=== PATIENT | female | born 1945 | race Caucasian/White ===

== ENCOUNTER 2021-05-23 18:14 | Inpatient (IN) ==
[2021-05-23 19:04] LABS: Basophils # 0.1 10*3/uL (0.0-0.2); Basophils % 0.8 % (0.0-0.8); Eosinophils # 0.1 10*3/uL (0.0-0.87); Eosinophils % 1.3 % (0.00-10.9); Hematocrit 41.1 VOL% (35.7-47.0); Hemoglobin 13.9 GM/DL (12.0-16.0); Immature Granulocytes % 0.3 %; Immature Granulocytes Absolute 0.02 #; Lymphocytes # 2.9 10*3/uL (1.4-4.0); Lymphocytes % 37.1 % (21.3-54.2); Mean Corpuscular HGB Conc 33.8 GM/DL (32-36); Mean Corpuscular Volume 92.6 FL (87-102); Mean Platelet Volume 9.2 FL (9.6-12.0); Monocytes % 9.6 % (1.7-12.7); Neutrophils % 50.9 % (38.7-73.9); Platelet Count 266 T/CUMM (130-400); Red Blood Count 4.44 MC/CUMM (3.8-5.5); Red Cell Distribution Width 12.8 % (9.3-17.3); White Blood Count 7.9 T/CUMM (4-12)
[2021-05-23 19:21] LABS: Albumin 3.9 G/DL (3.4-5.0); Bilirubin,Total 0.4 MG/DL (0.20-1.00); Calcium 9.7 MG/DL (8.5-10.1); Osmolality,Calculated 273.1 MOS/KG (273-304); Potassium 4.6 MMOL/L (3.5-5.1)
[2021-05-23] MEDS ORDERED: ASPIRIN EC 325 MG TABLET PO STA (23:11)
[2021-05-23] MEDS ORDERED: ENOXAPARIN 30 MG/0.3 ML SYRINGE SUBCUT STA (23:11)
[2021-05-24] MEDS ORDERED: GLUCAGON 1 MG VIAL IM PRN (00:09)
[2021-05-24] MEDS ORDERED: MORPHINE 2 MG/1 ML SYRINGE IV PRN (00:09)
[2021-05-24] MEDS ORDERED: DEXTROSE 50% 25 GM/50 ML VIAL IV PRN (00:09)
[2021-05-24] MEDS ORDERED: ONDANSETRON 4 MG/2 ML VIAL IV PRN (00:09)
[2021-05-24] MEDS: SODIUM CHLORIDE 0.9% 1,000 ML IV SCH (01:48)
[2021-05-24] MEDS: ENOXAPARIN 80 MG/0.8 ML SYRINGE SUBCUT SCH ×2 (01:49→16:03)
[2021-05-24 05:30] LABS: Basophils # 0.1 10*3/uL (0.0-0.2); Basophils % 0.9 % (0.0-0.8); Eosinophils # 0.1 10*3/uL (0.0-0.87); Eosinophils % 0.7 % (0.00-10.9); Hematocrit 41.6 VOL% (35.7-47.0); Hemoglobin 13.8 GM/DL (12.0-16.0); Immature Granulocytes % 0.4 %; Immature Granulocytes Absolute 0.03 #; Lymphocytes # 1.5 10*3/uL (1.4-4.0); Lymphocytes % 22.2 % (21.3-54.2); Mean Corpuscular HGB Conc 33.2 GM/DL (32-36); Mean Corpuscular Volume 91.2 FL (87-102); Mean Platelet Volume 9.2 FL (9.6-12.0); Monocytes % 9.7 % (1.7-12.7); Neutrophils % 66.1 % (38.7-73.9); Platelet Count 266 T/CUMM (130-400); Red Blood Count 4.56 MC/CUMM (3.8-5.5); Red Cell Distribution Width 12.9 % (9.3-17.3); White Blood Count 6.7 T/CUMM (4-12)
[2021-05-24 05:58] LABS: Risk Ratio 5.26; VLDL Cholesterol 34.2 MG/DL
[2021-05-24 06:04] LABS: Calcium 9.1 MG/DL (8.5-10.1); Osmolality,Calculated 278.4 MOS/KG (273-304); Potassium 4.1 MMOL/L (3.5-5.1)
[2021-05-24] MEDS ORDERED: MAGNESIUM SULF RIDER 2 GM/50 ML PREMIX IV PRN ×2 (08:43→10:58)
[2021-05-24] MEDS ORDERED: diphenhydrAMINE CAP 50 MG CAPSULE PO ONE (08:43)
[2021-05-24] MEDS ORDERED: POTASSIUM CHLORIDE RIDER 10 MEQ/100 ML PREMIX IV PRN ×2 (08:43→10:58)
[2021-05-24] MEDS ORDERED: DIAZEPAM 5 MG TABLET PO ONE (08:43)
[2021-05-24] MEDS ORDERED: HYDROmorphone 2 MG/1 ML VIAL ONE (08:50)
[2021-05-24] MEDS ORDERED: MIDAZOLAM 2 MG/2 ML VIAL ONE (08:50)
[2021-05-24] MEDS ORDERED: LIDOCAINE 1% 20 ML VIAL ONE (08:50)
[2021-05-24] MEDS ORDERED: ASPIRIN EC 81 MG TABLET PO SCH (09:00)
[2021-05-24] MEDS: ASPIRIN EC 81 MG TABLET PO SCH (09:50)
[2021-05-24] MEDS: PANTOPRAZOLE 40 MG TABLET PO SCH (09:50)
[2021-05-24] MEDS: DIAZEPAM 2 MG TABLET PO PRN ×2 (09:50→16:04)
[2021-05-24] MEDS: METOPROLOL TARTRATE 25 MG TABLET PO SCH ×2 (09:50→20:20)
[2021-05-24] MEDS ORDERED: MECLIZINE 12.5 MG TABLET PO PRN (10:29)
[2021-05-24] MEDS: ATORVASTATIN 40 MG TABLET PO SCH (20:20)
[2021-05-25] MEDS: SODIUM CHLORIDE 0.9% 1,000 ML IV SCH ×2 (00:07→18:30)
[2021-05-25] MEDS: ENOXAPARIN 80 MG/0.8 ML SYRINGE SUBCUT SCH ×2 (04:20→16:43)
[2021-05-25 06:02] LABS: Basophils # 0.1 10*3/uL (0.0-0.2); Basophils % 1.1 % (0.0-0.8); Eosinophils # 0.1 10*3/uL (0.0-0.87); Eosinophils % 1.8 % (0.00-10.9); Hematocrit 39.8 VOL% (35.7-47.0); Hemoglobin 13.1 GM/DL (12.0-16.0); Immature Granulocytes % 0.2 %; Immature Granulocytes Absolute 0.01 #; Lymphocytes # 1.6 10*3/uL (1.4-4.0); Lymphocytes % 28.3 % (21.3-54.2); Mean Corpuscular HGB Conc 32.9 GM/DL (32-36); Mean Corpuscular Volume 91.9 FL (87-102); Mean Platelet Volume 9.4 FL (9.6-12.0); Monocytes % 11.6 % (1.7-12.7); Platelet Count 247 T/CUMM (130-400); Red Blood Count 4.33 MC/CUMM (3.8-5.5); Red Cell Distribution Width 12.8 % (9.3-17.3); White Blood Count 5.5 T/CUMM (4-12)
[2021-05-25 06:22] LABS: Calcium 8.7 MG/DL (8.5-10.1); Osmolality,Calculated 277.4 MOS/KG (273-304); Potassium 4.7 MMOL/L (3.5-5.1)
[2021-05-25] MEDS: THYROID 60 MG TABLET PO SCH (08:31)
[2021-05-25] MEDS: PANTOPRAZOLE 40 MG TABLET PO SCH (08:31)
[2021-05-25] MEDS: METOPROLOL TARTRATE 25 MG TABLET PO SCH ×2 (08:32→20:18)
[2021-05-25] MEDS: ASPIRIN EC 81 MG TABLET PO SCH (08:33)
[2021-05-25] MEDS: LOSARTAN 25 MG TABLET PO SCH (15:28)
[2021-05-25] MEDS: ATORVASTATIN 40 MG TABLET PO SCH (20:18)
[2021-05-25] MEDS: DIAZEPAM 2 MG TABLET PO PRN (21:26)
[2021-05-26] MEDS: ENOXAPARIN 80 MG/0.8 ML SYRINGE SUBCUT SCH ×2 (04:28→15:51)
[2021-05-26 06:08] LABS: Basophils # 0.1 10*3/uL (0.0-0.2); Basophils % 1.6 % (0.0-0.8); Eosinophils # 0.1 10*3/uL (0.0-0.87); Eosinophils % 2.8 % (0.00-10.9); Hematocrit 38.2 VOL% (35.7-47.0); Hemoglobin 12.5 GM/DL (12.0-16.0); Immature Granulocytes % 0.4 %; Immature Granulocytes Absolute 0.02 #; Lymphocytes # 1.6 10*3/uL (1.4-4.0); Lymphocytes % 30.6 % (21.3-54.2); Mean Corpuscular HGB Conc 32.7 GM/DL (32-36); Mean Corpuscular Volume 94.1 FL (87-102); Mean Platelet Volume 9.7 FL (9.6-12.0); Monocytes % 10.4 % (1.7-12.7); Neutrophils % 54.2 % (38.7-73.9); Platelet Count 229 T/CUMM (130-400); Red Blood Count 4.06 MC/CUMM (3.8-5.5); Red Cell Distribution Width 12.7 % (9.3-17.3); White Blood Count 5.1 T/CUMM (4-12)
[2021-05-26] MEDS ORDERED: diphenhydrAMINE CAP 50 MG CAPSULE PO ONE (06:30)
[2021-05-26] MEDS ORDERED: DIAZEPAM 5 MG TABLET PO ONE ×2 (06:30→19:00)
[2021-05-26] MEDS ORDERED: LIDOCAINE 1%/EPI INJ 20 ML VIAL ONE (06:48)
[2021-05-26] MEDS ORDERED: HEPARIN 5,000 UNIT/1 ML VIAL ONE (06:48)
[2021-05-26] MEDS ORDERED: HEPARIN/NACL 0.9% 2 UNITS/ML 2,000 UNIT/1,000 ML BAG IV ONE (06:49)
[2021-05-26 06:54] LABS: Calcium 8.7 MG/DL (8.5-10.1); Osmolality,Calculated 273.7 MOS/KG (273-304); Potassium 4.6 MMOL/L (3.5-5.1)
[2021-05-26] MEDS ORDERED: MIDAZOLAM 2 MG/2 ML VIAL ONE (06:54)
[2021-05-26] MEDS ORDERED: fentaNYL 100 MCG/2 ML VIAL ONE (06:54)
[2021-05-26] MEDS ORDERED: hydrALAZINE 20 MG/1 ML VIAL ONE (07:23)
[2021-05-26] MEDS ORDERED: ONDANSETRON 4 MG/2 ML VIAL ONE (07:26)
[2021-05-26] MEDS ORDERED: DILTIAZEM 50 MG/10 ML VIAL IV ONE (07:42)
[2021-05-26] MEDS: DILTIAZEM INJ 100 MG in SODIUM CHLORIDE 0.9% 100 ML IV SCH (07:50)
[2021-05-26] MEDS ORDERED: DILTIAZEM INJ 100 MG in SODIUM CHLORIDE 0.9% 100 ML IV SCH (08:00)
[2021-05-26] MEDS ORDERED: ACETAMINOPHEN 325 MG TABLET PO PRN (09:50)
[2021-05-26] MEDS: THYROID 60 MG TABLET PO SCH (09:59)
[2021-05-26] MEDS: ASPIRIN EC 81 MG TABLET PO SCH (09:59)
[2021-05-26] MEDS: LOSARTAN 25 MG TABLET PO SCH (10:00)
[2021-05-26] MEDS: PANTOPRAZOLE 40 MG TABLET PO SCH (10:01)
[2021-05-26] MEDS: METOPROLOL TARTRATE 25 MG TABLET PO SCH ×2 (10:01→22:26)
[2021-05-26] MEDS ORDERED: MAGNESIUM SULF RIDER 2 GM/50 ML PREMIX IV ONE (11:09)
[2021-05-26] MEDS ORDERED: CEFUROXIME INJ 1,500 MG in SODIUM CHLORIDE 0.9% 100 ML IV ONE (13:01)
[2021-05-26] MEDS ORDERED: GLUCAGON 1 MG VIAL IM PRN (13:01)
[2021-05-26] MEDS ORDERED: DEXTROSE 50% 25 GM/50 ML VIAL IV PRN (13:01)
[2021-05-26] MEDS ORDERED: SODIUM CHLORIDE 0.9% 1,000 ML IV SCH (13:30)
[2021-05-26 14:25] LABS: ABG Base Excess 1.9 MMOL/L (-2.5-2.5); ABG HCO3 25.7 MMOL/L (20-26); ABG Oxygen Saturation 96.2 % (95-100); ABG PCO2 37.2 MM HG (35-48); ABG PH 7.457 (7.35-7.45); ABG PO2 82.1 MM HG (80-95); ABG TCO2 26.8 MMOL/L (23-27)
[2021-05-26] MEDS: CHLORHEXIDINE 4% SOLN 118 ML BOTTLE TOP SCH ×3 (15:45→22:27)
[2021-05-26] MEDS: ATORVASTATIN 40 MG TABLET PO SCH (22:26)
[2021-05-26] MEDS: ASCORBIC ACID 500 MG TABLET PO SCH (22:26)
[2021-05-26] MEDS: CHLORHEXIDINE 0.12% ORAL RINSE 60 ML BOTTLE SWISH/SPIT SCH (22:27)
[2021-05-27] MEDS ORDERED: PAPAVERINE 60 MG/2 ML VIAL ONE (04:45)
[2021-05-27] MEDS ORDERED: VANCOMYCIN 500 MG VIAL ONE (04:46)
[2021-05-27] MEDS ORDERED: VANCOMYCIN 1,000 MG VIAL ONE (04:46)
[2021-05-27] MEDS ORDERED: VECURONIUM 10 MG VIAL IV ONE ×3 (05:46→09:13)
[2021-05-27] MEDS ORDERED: MIDAZOLAM 10 MG/2 ML VIAL ONE ×4 (05:46→09:13)
[2021-05-27] MEDS ORDERED: SUFentanil 250 MCG/5 ML AMP ONE ×2 (05:46→07:56)
[2021-05-27] MEDS ORDERED: CALCIUM CHLORIDE 1,000 MG/10 ML VIAL IV ONE (05:52)
[2021-05-27] MEDS ORDERED: MINERAL OIL/PETROLATUM OPH OINT 3.5 GM TUBE ONE (05:52)
[2021-05-27] MEDS ORDERED: AMINOCAPROIC ACID 5,000 MG/20 ML VIAL ONE (05:52)
[2021-05-27] MEDS ORDERED: LIDOCAINE 2% 5 ML VIAL ONE ×2 (05:52→10:16)
[2021-05-27] MEDS ORDERED: SODIUM CHLORIDE 0.9% 250 ML IV ONE (05:53)
[2021-05-27] MEDS ORDERED: FAMOTIDINE 20 MG/2 ML VIAL IV ONE (05:59)
[2021-05-27] MEDS ORDERED: DIAZEPAM 5 MG TABLET PO ONE (06:00)
[2021-05-27] MEDS ORDERED: CEFUROXIME INJ 1,500 MG in SODIUM CHLORIDE 0.9% 100 ML IV ONE (06:30)
[2021-05-27 06:38] LABS: Basophils # 0.1 10*3/uL (0.0-0.2); Basophils % 0.9 % (0.0-0.8); Eosinophils # 0.1 10*3/uL (0.0-0.87); Eosinophils % 1.4 % (0.00-10.9); Hematocrit 37.3 VOL% (35.7-47.0); Hemoglobin 12.4 GM/DL (12.0-16.0); Immature Granulocytes % 0.3 %; Immature Granulocytes Absolute 0.02 #; Lymphocytes # 1.5 10*3/uL (1.4-4.0); Lymphocytes % 22.8 % (21.3-54.2); Mean Corpuscular HGB Conc 33.2 GM/DL (32-36); Mean Corpuscular Volume 92.6 FL (87-102); Mean Platelet Volume 9.5 FL (9.6-12.0); Monocytes % 10.8 % (1.7-12.7); Neutrophils % 63.8 % (38.7-73.9); Platelet Count 245 T/CUMM (130-400); Red Blood Count 4.03 MC/CUMM (3.8-5.5); Red Cell Distribution Width 12.9 % (9.3-17.3); White Blood Count 6.5 T/CUMM (4-12)
[2021-05-27 07:04] LABS: Calcium 8.8 MG/DL (8.5-10.1); Osmolality,Calculated 271.8 MOS/KG (273-304); Potassium 3.9 MMOL/L (3.5-5.1)
[2021-05-27 07:40] LABS: ABG Oxygen Saturation 98.8 % (95-100); ABG PCO2 36.8 MM HG (35-48); ABG PH 7.432 (7.35-7.45); ABG PO2 433.1 MM HG (80-95); ABG TCO2 25.1 MMOL/L (23-27); Glucose Heart Surgery 104 MG/DL (74-106); Hemoglobin Heart Surgery 11.2 G/DL (12.0-16.0); Ionized Calcium Arterial 1.09 MMOL/L (1.21-1.46); PCO2 Patient Temp Arterial 36.8 MMHG; PH Patient Temp Arterial 7.432; PO2 Patient Temp Arterial 433.1 MM HG; Patient Temperature 37 CELCIUS; Potassium Heart/CVR 3.5 MMOL/L (3.5-5.1); Sodium Heart/CVR 135 MMOL/L (135-145)
[2021-05-27 07:53] LABS: Bilirubin,Urine Negative (Negative); Blood, Urine Negative (Negative); Glucose,Urine (UA) Negative (Negative); Hyaline Casts,Urine 1 /LPF (0-3); Ketones,Urine Negative (Negative); Mucus,Urine Occasional /LPF (Occasional); Nitrite,Urine Negative (Negative); Protein,Urine Negative; RBC,Urine 2 /HPF (0-4); Squamous Epithelial Cell,Urine Occasional /HPF (0-10); Urine Appearance CLEAR (Clear); Urine Color Yellow (Yellow); Urine Urobilinogen < 2.0 EU/DL (0.2-1.0)
[2021-05-27] MEDS ORDERED: PHENYLEPHRINE DRIP 40 MG/250 ML PREMIX IV ONE (09:04)
[2021-05-27 09:06] LABS: Hematocrit Heart Surgery 18.9 PERCENT (37-47); PCO2 Patient Temp Venous 30.5 MM HG; PH Patient Temp Venous 7.514; PO2 Patient Temp Venous 37.9 MM HG; Potassium Heart/CVR 4.5 MMOL/L (3.5-5.1); VBG Base Excess 1.9 MEQ/L (0-4); VBG Oxygen Saturation 85.2 %; VBG PCO2 35.2 MMHG (41-51); VBG PH 7.469; VBG PO2 46.5 MMHG (17-40); VBG Total CO2 24.5 MMOL/L
[2021-05-27] MEDS ORDERED: SODIUM CHLORIDE 0.9% 1,000 ML IV ONE (09:11)
[2021-05-27] MEDS ORDERED: LACTATED RINGERS 1,000 ML IV ONE (09:11)
[2021-05-27] MEDS ORDERED: SODIUM CHLORIDE 0.9% 100 ML IV ONE (09:11)
[2021-05-27] MEDS ORDERED: SEVOFLURANE 1 UNIT/15 MINUTE INH ONE ×5 (09:12→11:02)
[2021-05-27] MEDS ORDERED: diphenhydrAMINE 50 MG/1 ML VIAL ONE (09:12)
[2021-05-27 09:41] LABS: Hematocrit Heart Surgery 20.5 PERCENT (37-47); Hemoglobin Heart Surgery 6.6 G/DL (12.0-16.0); PCO2 Patient Temp Venous 32.1 MM HG; PH Patient Temp Venous 7.505; Potassium Heart/CVR 4.1 MMOL/L (3.5-5.1); VBG Base Excess 2.5 MEQ/L (0-4); VBG HCO3 26.5 MEQ/L (24-28); VBG Oxygen Saturation 84.7 %; VBG PCO2 37.1 MMHG (41-51); VBG PH 7.46; VBG PO2 46.7 MMHG (17-40); VBG Total CO2 25.1 MMOL/L
[2021-05-27] MEDS ORDERED: ALBUMIN 25% 25 GM/100 ML VIAL IV ONE (10:16)
[2021-05-27] MEDS ORDERED: MAGNESIUM SULFATE 5 GM/10 ML VIAL IV ONE (10:16)
[2021-05-27] MEDS ORDERED: HEPARIN 10,000 UNIT/10 ML VIAL ONE (10:17)
[2021-05-27] MEDS ORDERED: PROTAMINE SULFATE 250 MG/25 ML VIAL IV ONE (10:17)
[2021-05-27] MEDS ORDERED: DEXTROSE 5% KCL 20 MEQ 20 MEQ/1,000 ML BAG IV ONE (10:17)
[2021-05-27] MEDS ORDERED: MANNITOL 100 GM/500 ML BAG IV ONE (10:17)
[2021-05-27] MEDS ORDERED: methylPREDNISolone SOD SUC 1,000 MG/8 ML VIAL ONE (10:17)
[2021-05-27] MEDS ORDERED: SODIUM BICARBONATE 50 MEQ/50 ML VIAL IV ONE (10:18)
[2021-05-27] MEDS ORDERED: FUROSEMIDE 20 MG/2 ML VIAL ONE (10:18)
[2021-05-27 10:30] LABS: ABG Base Excess 1.1 MMOL/L (-2.5-2.5); ABG HCO3 25.4 MMOL/L (20-26); ABG PCO2 35.5 MM HG (35-48); ABG PH 7.453 (7.35-7.45); Glucose Heart Surgery 255 MG/DL (74-106); Hematocrit Heart Surgery 25.6 PERCENT (37-47); Hemoglobin Heart Surgery 8.2 G/DL (12.0-16.0); Ionized Calcium Arterial 1.26 MMOL/L (1.21-1.46); PCO2 Patient Temp Arterial 35.5 MMHG; PH Patient Temp Arterial 7.453; Patient Temperature 37 CELCIUS; Potassium Heart/CVR 3.5 MMOL/L (3.5-5.1); Sodium Heart/CVR 136 MMOL/L (135-145)
[2021-05-27] MEDS ORDERED: HEPARIN/NACL 0.9% 2 UNITS/ML 1,000 UNIT/500 ML BAG IV ONE (11:03)
[2021-05-27] MEDS ORDERED: CALCIUM CHLORIDE 1,000 MG/10 ML SYRINGE IV PRN (11:24)
[2021-05-27] MEDS ORDERED: INSULIN REGULAR 100 UNIT/ML IV PRN (11:24)
[2021-05-27] MEDS ORDERED: VECURONIUM 10 MG VIAL IV PRN ×2 (11:24)
[2021-05-27] MEDS ORDERED: MAGNESIUM SULF RIDER 2 GM/50 ML PREMIX IV PRN (11:24)
[2021-05-27] MEDS ORDERED: MAGNESIUM SULF RIDER 4 GM/100 ML PREMIX IV PRN (11:24)
[2021-05-27] MEDS ORDERED: INSULIN REGULAR 100 UNIT/ML IV ONE (11:24)
[2021-05-27] MEDS ORDERED: ALBUMIN 5% 12.5 GM/250 ML VIAL IV PRN (11:24)
[2021-05-27] MEDS ORDERED: DEXTROSE 50% 25 GM/50 ML VIAL IV PRN ×2 (11:24)
[2021-05-27] MEDS ORDERED: LACTATED RINGERS 250 ML IV PRN (11:24)
[2021-05-27] MEDS ORDERED: ONDANSETRON 4 MG/2 ML VIAL IV PRN (11:24)
[2021-05-27] MEDS ORDERED: ACETAMINOPHEN 650 MG SUPP RECTAL PRN (11:24)
[2021-05-27] MEDS ORDERED: PHENYLEPHRINE DRIP 40 MG/250 ML PREMIX IV PRN (11:24)
[2021-05-27] MEDS ORDERED: MIDAZOLAM 2 MG/2 ML VIAL IV PRN (11:24)
[2021-05-27] MEDS ORDERED: NITROPRUSSIDE 100 MG in DEXTROSE 5% 250 ML IV PRN (11:24)
[2021-05-27] MEDS ORDERED: MIDAZOLAM 10 MG/2 ML VIAL IV PRN (11:24)
[2021-05-27] MEDS ORDERED: CHLORHEXIDINE 4% SOLN 118 ML BOTTLE TOP PRN (11:24)
[2021-05-27] MEDS: SODIUM CHLORIDE 0.45% 1,000 ML IV SCH ×2 (11:43→11:44)
[2021-05-27 11:46] LABS: ABG Base Excess 2.6 MMOL/L (-2.5-2.5); ABG HCO3 26.7 MMOL/L (20-26); ABG Oxygen Saturation 99.4 % (95-100); ABG PCO2 34.3 MM HG (35-48); ABG PH 7.486 (7.35-7.45); ABG TCO2 23.8 MMOL/L (23-27); Glucose Heart Surgery 222 MG/DL (74-106); Hematocrit Heart Surgery 27.2 PERCENT (37-47); Hemoglobin Heart Surgery 8.8 G/DL (12.0-16.0); Potassium Heart/CVR 3.2 MMOL/L (3.5-5.1)
[2021-05-27 12:04] LABS: Basophils % 0.3 % (0.0-0.8); Eosinophils # 0.1 10*3/uL (0.0-0.87); Eosinophils % 0.4 % (0.00-10.9); Immature Granulocytes % 0.4 %; Immature Granulocytes Absolute 0.05 #; Lymphocytes # 1.1 10*3/uL (1.4-4.0); Lymphocytes % 9.5 % (21.3-54.2); Mean Corpuscular HGB Conc 33.8 GM/DL (32-36); Mean Corpuscular Volume 93.2 FL (87-102); Monocytes % 6.2 % (1.7-12.7); Neutrophils % 83.2 % (38.7-73.9); Platelet Count 215 T/CUMM (130-400); Red Cell Distribution Width 12.9 % (9.3-17.3)
[2021-05-27 12:08] LABS: Hemoglobin 8.8 GM/DL (12.0-16.0); Red Blood Count 2.79 MC/CUMM (3.8-5.5); White Blood Count 11.2 T/CUMM (4-12)
[2021-05-27 12:10] LABS: INR 1.2; PT Patient Result 13.3 SECS (10.5-12.0); Partial Thromboplastin Time 29.7 SECS (23.9-33.8)
[2021-05-27] MEDS: POTASSIUM CHLORIDE RIDER 20 MEQ/100 ML PREMIX IV PRN ×5 (12:12→16:53)
[2021-05-27] MEDS: CHLORHEXIDINE 4% SOLN 118 ML BOTTLE TOP SCH (12:13)
[2021-05-27 12:22] LABS: CKMB % 10.3 %
[2021-05-27 12:27] LABS: High Sensitive Troponin I* 7060.9 ng/L (0-54)
[2021-05-27] MEDS: INSULIN REGULAR DRIP 100 ML IV SCH (12:27)
[2021-05-27 12:37] LABS: Albumin 3.2 G/DL (3.4-5.0); Calcium 8.4 MG/DL (8.5-10.1); Osmolality,Calculated 280.5 MOS/KG (273-304); Potassium 3.2 MMOL/L (3.5-5.1); Total Protein 5.9 G/DL (6.4-8.2)
[2021-05-27] MEDS: LACTATED RINGERS 1,000 ML IV PRN ×4 (13:11→23:25)
[2021-05-27] MEDS ORDERED: HYDROmorphone 2 MG/1 ML VIAL IV PRN ×2 (13:29→13:32)
[2021-05-27 13:55] LABS: ABG HCO3 22.7 MMOL/L (20-26); ABG Oxygen Saturation 99.6 % (95-100); ABG PCO2 29.1 MM HG (35-48); ABG PH 7.465 (7.35-7.45); ABG TCO2 19.3 MMOL/L (23-27); Glucose Heart Surgery 110 MG/DL (74-106); Hematocrit Heart Surgery 27.5 PERCENT (37-47); Hemoglobin Heart Surgery 8.9 G/DL (12.0-16.0); Potassium Heart/CVR 2.8 MMOL/L (3.5-5.1)
[2021-05-27] MEDS: HYDROmorphone 2 MG/1 ML VIAL IV PRN ×2 (13:59→22:35)
[2021-05-27] MEDS ORDERED: DEXMEDETOMIDINE 200 MCG in SODIUM CHLORIDE 0.9% 48 ML IV PRN (14:00)
[2021-05-27] MEDS ORDERED: PROTAMINE SULFATE 50 MG/5 ML VIAL IV ONE (14:10)
[2021-05-27] MEDS: KETOROLAC 30 MG/1 ML VIAL IV SCH ×2 (14:19→20:33)
[2021-05-27 14:20] LABS: ABG Base Excess 2.8 MMOL/L (-2.5-2.5); ABG HCO3 26.9 MMOL/L (20-26); ABG Oxygen Saturation 99.6 % (95-100); ABG PCO2 32.9 MM HG (35-48); ABG TCO2 23.1 MMOL/L (23-27); Glucose Heart Surgery 126 MG/DL (74-106); Hematocrit Heart Surgery 31.6 PERCENT (37-47); Hemoglobin Heart Surgery 10.2 G/DL (12.0-16.0); Potassium Heart/CVR 3.1 MMOL/L (3.5-5.1)
[2021-05-27 16:07] LABS: ABG HCO3 26.2 MMOL/L (20-26); ABG PCO2 37.4 MM HG (35-48); ABG PH 7.449 (7.35-7.45); ABG TCO2 23.7 MMOL/L (23-27); Glucose Heart Surgery 95 MG/DL (74-106); Hematocrit Heart Surgery 29.1 PERCENT (37-47); Hemoglobin Heart Surgery 9.4 G/DL (12.0-16.0)
[2021-05-27 18:37] LABS: ABG Base Excess -0.5 MMOL/L (-2.5-2.5); ABG Oxygen Saturation 98.3 % (95-100); ABG PCO2 40.5 MM HG (35-48); ABG PH 7.388 (7.35-7.45); ABG TCO2 22.2 MMOL/L (23-27); Glucose Heart Surgery 159 MG/DL (74-106); Potassium Heart/CVR 4.2 MMOL/L (3.5-5.1)
[2021-05-27] MEDS: CEFUROXIME INJ 1,500 MG in SODIUM CHLORIDE 0.9% 100 ML IV SCH (18:53)
[2021-05-27] MEDS: ASPIRIN EC 81 MG TABLET PO SCH (19:37)
[2021-05-27] MEDS: DILTIAZEM INJ 100 MG in SODIUM CHLORIDE 0.9% 100 ML IV SCH (19:37)
[2021-05-27] MEDS: THYROID 60 MG TABLET PO SCH (19:37)
[2021-05-27] MEDS: LOSARTAN 25 MG TABLET PO SCH (19:37)
[2021-05-27] MEDS: METOPROLOL TARTRATE 25 MG TABLET PO SCH (19:37)
[2021-05-27] MEDS: ASCORBIC ACID 500 MG TABLET PO SCH (19:38)
[2021-05-27] MEDS: CHLORHEXIDINE 0.12% ORAL RINSE 60 ML BOTTLE SWISH/SPIT SCH ×2 (19:38→20:56)
[2021-05-27] MEDS: PANTOPRAZOLE 40 MG TABLET PO SCH (19:38)
[2021-05-27 20:20] LABS: ABG Base Excess 0.3 MMOL/L (-2.5-2.5); ABG HCO3 24.7 MMOL/L (20-26); ABG Oxygen Saturation 98.6 % (95-100); ABG PCO2 39.4 MM HG (35-48); ABG PH 7.408 (7.35-7.45); ABG TCO2 22.6 MMOL/L (23-27); Glucose Heart Surgery 152 MG/DL (74-106); Hematocrit Heart Surgery 30.6 PERCENT (37-47); Hemoglobin Heart Surgery 9.9 G/DL (12.0-16.0)
[2021-05-27] MEDS: POTASSIUM CHLORIDE RIDER 10 MEQ/100 ML PREMIX IV PRN ×2 (20:32→20:56)
[2021-05-27] MEDS ORDERED: DEXMEDETOMIDINE 400 MCG in SODIUM CHLORIDE 0.9% 96 ML IV PRN (20:47)
[2021-05-27 20:52] LABS: CKMB % 14.4 %
[2021-05-27 20:56] LABS: High Sensitive Troponin I* 17948.5 ng/L (0-54)
[2021-05-27] MEDS ORDERED: FUROSEMIDE 40 MG/4 ML VIAL IV ONE (22:04)
[2021-05-28 00:17] LABS: ABG Base Excess 2.9 MMOL/L (-2.5-2.5); ABG HCO3 26.7 MMOL/L (20-26); ABG Oxygen Saturation 96.3 % (95-100); ABG PH 7.465 (7.35-7.45); ABG PO2 89.3 MM HG (80-95); ABG TCO2 27.9 MMOL/L (23-27); Glucose Heart Surgery 85 MG/DL (74-106); Hemoglobin Heart Surgery 10.1 G/DL (12.0-16.0); Potassium Heart/CVR 3.3 MMOL/L (3.5-5.1)
[2021-05-28] MEDS: POTASSIUM CHLORIDE RIDER 20 MEQ/100 ML PREMIX IV PRN ×3 (00:22→07:27)
[2021-05-28 02:23] LABS: ABG HCO3 25.3 MMOL/L (20-26); ABG Oxygen Saturation 96.9 % (95-100); ABG PCO2 42.7 MM HG (35-48); ABG PH 7.394 (7.35-7.45); ABG PO2 89.2 MM HG (80-95); ABG TCO2 23.8 MMOL/L (23-27); Glucose Heart Surgery 112 MG/DL (74-106); Hematocrit Heart Surgery 30.6 PERCENT (37-47); Hemoglobin Heart Surgery 9.9 G/DL (12.0-16.0); Potassium Heart/CVR 4.4 MMOL/L (3.5-5.1)
[2021-05-28] MEDS: KETOROLAC 30 MG/1 ML VIAL IV SCH ×4 (03:32→20:55)
[2021-05-28 04:19] LABS: ABG Base Excess 0.8 MMOL/L (-2.5-2.5); ABG HCO3 25.3 MMOL/L (20-26); ABG Oxygen Saturation 95.5 % (95-100); ABG PCO2 40.2 MM HG (35-48); ABG PH 7.417 (7.35-7.45); ABG PO2 82.2 MM HG (80-95); ABG TCO2 26.5 MMOL/L (23-27); Basophils % 0.1 % (0.0-0.8); Glucose Heart Surgery 117 MG/DL (74-106); Hematocrit 27.7 VOL% (35.7-47.0); Hemoglobin 9.3 GM/DL (12.0-16.0); Hemoglobin Heart Surgery 9.8 G/DL (12.0-16.0); Immature Granulocytes % 0.6 %; Immature Granulocytes Absolute 0.09 #; Lymphocytes # 0.8 10*3/uL (1.4-4.0); Lymphocytes % 4.6 % (21.3-54.2); Mean Corpuscular HGB Conc 33.6 GM/DL (32-36); Mean Corpuscular Volume 93.3 FL (87-102); Mean Platelet Volume 10.2 FL (9.6-12.0); Monocytes % 5.4 % (1.7-12.7); Neutrophils % 89.3 % (38.7-73.9); Platelet Count 203 T/CUMM (130-400); Potassium Heart/CVR 4.6 MMOL/L (3.5-5.1); Red Blood Count 2.97 MC/CUMM (3.8-5.5); Red Cell Distribution Width 13.2 % (9.3-17.3); White Blood Count 16.2 T/CUMM (4-12)
[2021-05-28 04:47] LABS: Platelet Estimate Normal; Segmented Neutrophils 99 % (50-85); Total Cells Counted 100
[2021-05-28 04:50] LABS: Albumin 2.7 G/DL (3.4-5.0); Bilirubin,Direct 0.12 MG/DL (0.0-0.20); Bilirubin,Total 0.7 MG/DL (0.20-1.00); Calcium 7.7 MG/DL (8.5-10.1); Osmolality,Calculated 274.7 MOS/KG (273-304); Potassium 4.7 MMOL/L (3.5-5.1); Total Protein 5.4 G/DL (6.4-8.2)
[2021-05-28 05:03] LABS: CKMB % 19.3 %
[2021-05-28 05:05] LABS: High Sensitive Troponin I* 33607.3 ng/L (0-54)
[2021-05-28 05:50] LABS: ABG Base Excess -1.5 MMOL/L (-2.5-2.5); ABG HCO3 23.2 MMOL/L (20-26); ABG Oxygen Saturation 97.5 % (95-100); ABG PCO2 38.1 MM HG (35-48); ABG PH 7.392 (7.35-7.45); Glucose Heart Surgery 155 MG/DL (74-106); Hematocrit Heart Surgery 32.6 PERCENT (37-47); Hemoglobin Heart Surgery 10.5 G/DL (12.0-16.0); Potassium Heart/CVR 4.2 MMOL/L (3.5-5.1)
[2021-05-28] MEDS ORDERED: FUROSEMIDE 40 MG/4 ML VIAL IV ONE (06:34)
[2021-05-28] MEDS: CEFUROXIME INJ 1,500 MG in SODIUM CHLORIDE 0.9% 100 ML IV SCH ×2 (06:41→19:48)
[2021-05-28 06:50] LABS: ABG Base Excess -0.5 MMOL/L (-2.5-2.5); ABG HCO3 23.9 MMOL/L (20-26); ABG Oxygen Saturation 92.4 % (95-100); ABG PCO2 40.6 MM HG (35-48); ABG PH 7.388 (7.35-7.45); ABG PO2 66.8 MM HG (80-95); ABG TCO2 22.1 MMOL/L (23-27); Glucose Heart Surgery 124 MG/DL (74-106); Hematocrit Heart Surgery 33.3 PERCENT (37-47); Hemoglobin Heart Surgery 10.8 G/DL (12.0-16.0); Potassium Heart/CVR 3.9 MMOL/L (3.5-5.1)
[2021-05-28] MEDS: POTASSIUM CHLORIDE RIDER 10 MEQ/100 ML PREMIX IV PRN (07:55)
[2021-05-28] MEDS ORDERED: CALCIUM GLUCONATE 2,000 MG in SODIUM CHLORIDE 0.9% 100 ML IV ONE (09:30)
[2021-05-28] MEDS: CHLORHEXIDINE 0.12% ORAL RINSE 60 ML BOTTLE SWISH/SPIT SCH ×2 (09:41→20:55)
[2021-05-28] MEDS: ASPIRIN EC 325 MG TABLET PO SCH (09:42)
[2021-05-28] MEDS: ASCORBIC ACID 500 MG TABLET PO SCH ×2 (09:42→20:55)
[2021-05-28] MEDS: PANTOPRAZOLE 40 MG TABLET PO SCH (09:42)
[2021-05-28] MEDS: SODIUM CHLORIDE 0.45% 1,000 ML IV SCH ×2 (12:44→12:45)
[2021-05-28] MEDS: oxyCODONE/ACETAMINOPHEN 5-325 MG TABLET PO PRN (14:30)
[2021-05-28 17:05] LABS: CKMB % 14.7 %
[2021-05-28 17:20] LABS: High Sensitive Troponin I* 25554.1 ng/L (0-54)
[2021-05-28] MEDS: ATORVASTATIN 40 MG TABLET PO SCH (20:55)
[2021-05-29] MEDS: KETOROLAC 30 MG/1 ML VIAL IV SCH ×4 (02:45→20:19)
[2021-05-29] MEDS: HYDROmorphone 2 MG/1 ML VIAL IV PRN (02:45)
[2021-05-29 04:08] LABS: Hematocrit 30.1 VOL% (35.7-47.0); Immature Granulocytes % 0.7 %; Immature Granulocytes Absolute 0.15 #; Lymphocytes # 0.8 10*3/uL (1.4-4.0); Lymphocytes % 4.1 % (21.3-54.2); Mean Corpuscular HGB Conc 33.2 GM/DL (32-36); Mean Corpuscular Volume 94.1 FL (87-102); Mean Platelet Volume 10.1 FL (9.6-12.0); Monocytes % 8.7 % (1.7-12.7); Neutrophils % 86.5 % (38.7-73.9); Platelet Count 221 T/CUMM (130-400); Red Cell Distribution Width 13.5 % (9.3-17.3); White Blood Count 20.1 T/CUMM (4-12)
[2021-05-29 04:28] LABS: Albumin 3.2 G/DL (3.4-5.0); Bilirubin,Direct 0.15 MG/DL (0.0-0.20); Bilirubin,Total 0.9 MG/DL (0.20-1.00); Calcium 8.1 MG/DL (8.5-10.1); Osmolality,Calculated 275.2 MOS/KG (273-304); Potassium 4.4 MMOL/L (3.5-5.1); Total Protein 5.9 G/DL (6.4-8.2)
[2021-05-29 04:29] LABS: Hypochromasia 1+; Lymphocytes 5 % (20-55); Microcytosis 1+; Platelet Estimate Adequate; Segmented Neutrophils 86 % (50-85); Total Cells Counted 100
[2021-05-29] MEDS ORDERED: FUROSEMIDE 40 MG/4 ML VIAL ONE (06:08)
[2021-05-29] MEDS ORDERED: FUROSEMIDE 40 MG/4 ML VIAL IV ONE (06:10)
[2021-05-29] MEDS ORDERED: THYROID 60 MG TABLET PO SCH (07:00)
[2021-05-29] MEDS ORDERED: CALCIUM GLUCONATE 2,000 MG in SODIUM CHLORIDE 0.9% 100 ML IV ONE (08:09)
[2021-05-29] MEDS ORDERED: MAGNESIUM SULF RIDER 2 GM/50 ML PREMIX IV ONE (08:21)
[2021-05-29] MEDS: ASCORBIC ACID 500 MG TABLET PO SCH ×2 (08:58→20:20)
[2021-05-29] MEDS: ASPIRIN EC 325 MG TABLET PO SCH (08:58)
[2021-05-29] MEDS: PANTOPRAZOLE 40 MG TABLET PO SCH (08:59)
[2021-05-29] MEDS ORDERED: ROSUVASTATIN 20 MG TABLET PO SCH (09:00)
[2021-05-29] MEDS ORDERED: MAGNESIUM HYDROXIDE SUSP 30 ML UDCUP PO PRN (09:56)
[2021-05-29] MEDS ORDERED: MAGNESIUM SULF RIDER 2 GM/50 ML PREMIX IV PRN (09:56)
[2021-05-29] MEDS ORDERED: SODIUM CHLOR 0.45% KCL 20 MEQ 20 MEQ/1,000 ML BAG IV SCH (09:56)
[2021-05-29] MEDS ORDERED: DEXTROSE 50% 25 GM/50 ML VIAL IV PRN (09:56)
[2021-05-29] MEDS ORDERED: ALUMINUM/MAGNES/SIMETH MAX STR 30 ML UDCUP PO PRN (09:56)
[2021-05-29] MEDS ORDERED: ACETAMINOPHEN 325 MG TABLET PO PRN (09:56)
[2021-05-29] MEDS ORDERED: GLUCAGON 1 MG VIAL IM PRN (09:56)
[2021-05-29] MEDS ORDERED: ONDANSETRON 4 MG/2 ML VIAL IV PRN (09:56)
[2021-05-29] MEDS ORDERED: MAGNESIUM SULF RIDER 4 GM/100 ML PREMIX IV PRN (09:56)
[2021-05-29] MEDS ORDERED: POTASSIUM CHLORIDE 20 MEQ TABLET PO PRN (09:56)
[2021-05-29] MEDS: CHLORHEXIDINE 0.12% ORAL RINSE 60 ML BOTTLE SWISH/SPIT SCH ×3 (10:13→20:20)
[2021-05-29] MEDS: FERROUS SULFATE 325 MG TABLET PO SCH (11:11)
[2021-05-29] MEDS: DOCUSATE SODIUM 100 MG CAPSULE PO SCH (11:11)
[2021-05-29] MEDS: INSULIN REGULAR DRIP 100 ML IV SCH (11:13)
[2021-05-29] MEDS: ATORVASTATIN 40 MG TABLET PO SCH (20:20)
[2021-05-30] MEDS: KETOROLAC 30 MG/1 ML VIAL IV SCH ×4 (03:07→22:00)
[2021-05-30] MEDS ORDERED: DEXTROSE 50% 25 GM/50 ML VIAL IV PRN (03:38)
[2021-05-30] MEDS ORDERED: GLUCAGON 1 MG VIAL IM PRN (03:38)
[2021-05-30 04:36] LABS: Basophils % 0.1 % (0.0-0.8); Hematocrit 28.3 VOL% (35.7-47.0); Hemoglobin 9.5 GM/DL (12.0-16.0); Immature Granulocytes % 1.1 %; Immature Granulocytes Absolute 0.13 #; Lymphocytes # 0.5 10*3/uL (1.4-4.0); Lymphocytes % 4.1 % (21.3-54.2); Mean Corpuscular HGB Conc 33.6 GM/DL (32-36); Mean Corpuscular Volume 91.9 FL (87-102); Mean Platelet Volume 9.9 FL (9.6-12.0); Monocytes % 6.3 % (1.7-12.7); Neutrophils % 88.4 % (38.7-73.9); Platelet Count 177 T/CUMM (130-400); Red Blood Count 3.08 MC/CUMM (3.8-5.5); Red Cell Distribution Width 13.2 % (9.3-17.3); White Blood Count 11.7 T/CUMM (4-12)
[2021-05-30] MEDS: INSULIN REGULAR 100 UNIT/ML SUBCUT SCH ×2 (04:47→08:15)
[2021-05-30 05:05] LABS: Albumin 2.8 G/DL (3.4-5.0); Bilirubin,Direct 0.18 MG/DL (0.0-0.20); Bilirubin,Total 1.2 MG/DL (0.20-1.00); CKMB % 6.2 %; Calcium 8.3 MG/DL (8.5-10.1); Lymphocytes 4 % (20-55); Osmolality,Calculated 268.5 MOS/KG (273-304); Platelet Estimate Adequate; Potassium 4.5 MMOL/L (3.5-5.1); Segmented Neutrophils 93 % (50-85); Total Cells Counted 100; Total Protein 5.5 G/DL (6.4-8.2)
[2021-05-30 05:06] LABS: Hypochromasia 1+; Microcytosis 1+
[2021-05-30 05:08] LABS: High Sensitive Troponin I* 11565.9 ng/L (0-54)
[2021-05-30] MEDS: THYROID 60 MG PO SCH (06:00)
[2021-05-30] MEDS ORDERED: FUROSEMIDE 40 MG/4 ML VIAL IV ONE (06:00)
[2021-05-30] MEDS: PANTOPRAZOLE 40 MG TABLET PO SCH (09:17)
[2021-05-30] MEDS: DOCUSATE SODIUM 100 MG CAPSULE PO SCH (09:18)
[2021-05-30] MEDS: FERROUS SULFATE 325 MG TABLET PO SCH (09:18)
[2021-05-30] MEDS: ASPIRIN EC 325 MG TABLET PO SCH (09:18)
[2021-05-30] MEDS: ASCORBIC ACID 500 MG TABLET PO SCH ×2 (09:18→21:59)
[2021-05-30] MEDS: oxyCODONE/ACETAMINOPHEN 5-325 MG TABLET PO PRN (09:22)
[2021-05-30] MEDS: CHLORHEXIDINE 0.12% ORAL RINSE 60 ML BOTTLE SWISH/SPIT SCH ×2 (09:24→22:01)
[2021-05-30] MEDS: PROGESTERONE TOP SCH (10:00)
[2021-05-30] MEDS: ATORVASTATIN 40 MG TABLET PO SCH (21:59)
[2021-05-31] MEDS: oxyCODONE/ACETAMINOPHEN 5-325 MG TABLET PO PRN ×3 (02:29→21:10)
[2021-05-31] MEDS: ZALEPLON 5 MG CAPSULE PO PRN (02:30)
[2021-05-31] MEDS: KETOROLAC 30 MG/1 ML VIAL IV SCH ×4 (02:38→20:59)
[2021-05-31 05:58] LABS: Basophils % 0.1 % (0.0-0.8); Eosinophils # 0.1 10*3/uL (0.0-0.87); Eosinophils % 0.5 % (0.00-10.9); Hematocrit 30.2 VOL% (35.7-47.0); Immature Granulocytes % 0.5 %; Immature Granulocytes Absolute 0.06 #; Lymphocytes # 1.2 10*3/uL (1.4-4.0); Mean Corpuscular HGB Conc 33.1 GM/DL (32-36); Mean Corpuscular Volume 92.6 FL (87-102); Mean Platelet Volume 9.5 FL (9.6-12.0); Monocytes % 9.7 % (1.7-12.7); Neutrophils % 79.2 % (38.7-73.9); Platelet Count 233 T/CUMM (130-400); Red Blood Count 3.26 MC/CUMM (3.8-5.5); Red Cell Distribution Width 13.2 % (9.3-17.3); White Blood Count 11.5 T/CUMM (4-12)
[2021-05-31 06:35] LABS: Alanine Aminotransferase 36 U/L (13-56); Albumin 2.6 G/DL (3.4-5.0); Alkaline Phosphatase 48 U/L (45-117); Aspartate Amino Transferase 56 U/L (0-37); Bilirubin,Indirect 0.5 MG/DL (0.0-1.0); Blood Urea Nitrogen 19 MG/DL (7-18); Calcium 8.2 MG/DL (8.5-10.1); Carbon Dioxide 31 MMOL/L (21-32); Estimated Glom Filtration Rate 90 ML/MIN; Glucose 109 MG/DL (74-106); Sodium 136 MMOL/L (136-145); Total Protein 5.2 G/DL (6.4-8.2)
[2021-05-31] MEDS: THYROID 60 MG PO SCH (07:02)
[2021-05-31] MEDS: ASPIRIN EC 325 MG TABLET PO SCH (09:36)
[2021-05-31] MEDS: FERROUS SULFATE 325 MG TABLET PO SCH (09:36)
[2021-05-31] MEDS: ASCORBIC ACID 500 MG TABLET PO SCH ×2 (09:36→20:57)
[2021-05-31] MEDS: DOCUSATE SODIUM 100 MG CAPSULE PO SCH (09:37)
[2021-05-31] MEDS: POLYETHYLENE GLYCOL POWDER 17 GM PACK PO SCH (09:37)
[2021-05-31] MEDS: PROGESTERONE TOP SCH (09:38)
[2021-05-31] MEDS: PANTOPRAZOLE 40 MG TABLET PO SCH (09:48)
[2021-05-31] MEDS: CHLORHEXIDINE 0.12% ORAL RINSE 60 ML BOTTLE SWISH/SPIT SCH ×2 (09:49→20:57)
[2021-05-31] MEDS: ATORVASTATIN 40 MG TABLET PO SCH (20:57)
[2021-06-01] MEDS: KETOROLAC 30 MG/1 ML VIAL IV SCH ×2 (02:39→09:46)
[2021-06-01 05:07] LABS: Basophils % 0.1 % (0.0-0.8); Eosinophils # 0.3 10*3/uL (0.0-0.87); Eosinophils % 3.2 % (0.00-10.9); Hematocrit 30.2 VOL% (35.7-47.0); Hemoglobin 9.8 GM/DL (12.0-16.0); Immature Granulocytes % 0.5 %; Immature Granulocytes Absolute 0.04 #; Lymphocytes # 1.2 10*3/uL (1.4-4.0); Lymphocytes % 14.8 % (21.3-54.2); Mean Corpuscular HGB Conc 32.5 GM/DL (32-36); Mean Corpuscular Volume 95.3 FL (87-102); Mean Platelet Volume 9.4 FL (9.6-12.0); Neutrophils % 71.4 % (38.7-73.9); Platelet Count 247 T/CUMM (130-400); Red Blood Count 3.17 MC/CUMM (3.8-5.5); Red Cell Distribution Width 13.2 % (9.3-17.3); White Blood Count 8.2 T/CUMM (4-12)
[2021-06-01 05:28] LABS: Calcium 8.4 MG/DL (8.5-10.1); Osmolality,Calculated 276.7 MOS/KG (273-304); Potassium 3.8 MMOL/L (3.5-5.1)
[2021-06-01] MEDS ORDERED: POTASSIUM CHLORIDE 20 MEQ TABLET PO ONE (07:01)
[2021-06-01] MEDS: THYROID 60 MG PO SCH (07:15)
[2021-06-01] MEDS: METOPROLOL TARTRATE 25 MG TABLET PO SCH ×2 (09:44→20:48)
[2021-06-01] MEDS: ASPIRIN EC 325 MG TABLET PO SCH (09:45)
[2021-06-01] MEDS: ASCORBIC ACID 500 MG TABLET PO SCH ×2 (09:45→20:48)
[2021-06-01] MEDS: CHLORHEXIDINE 0.12% ORAL RINSE 60 ML BOTTLE SWISH/SPIT SCH ×2 (09:45→20:50)
[2021-06-01] MEDS: PANTOPRAZOLE 40 MG TABLET PO SCH (09:45)
[2021-06-01] MEDS: FERROUS SULFATE 325 MG TABLET PO SCH (09:45)
[2021-06-01] MEDS: DOCUSATE SODIUM 100 MG CAPSULE PO SCH (09:46)
[2021-06-01] MEDS: POLYETHYLENE GLYCOL POWDER 17 GM PACK PO SCH (09:46)
[2021-06-01] MEDS: PROGESTERONE TOP SCH ×2 (09:51→09:56)
[2021-06-01] MEDS ORDERED: SIMETHICONE CHEW 80 MG TABLET PO PRN (15:00)
[2021-06-01] MEDS ORDERED: SIMETHICONE CHEW 125 MG TABLET PO PRN (15:00)
[2021-06-01] MEDS: KETOROLAC 10 MG TABLET PO PRN (15:19)
[2021-06-01] MEDS ORDERED: FAMOTIDINE 20 MG TABLET PO ONE (18:24)
[2021-06-01] MEDS: ATORVASTATIN 40 MG TABLET PO SCH (20:48)
[2021-06-01] MEDS: ZALEPLON 5 MG CAPSULE PO PRN (20:49)
[2021-06-01] MEDS: oxyCODONE/ACETAMINOPHEN 5-325 MG TABLET PO PRN (20:49)
[2021-06-02 05:01] LABS: Basophils % 0.4 % (0.0-0.8); Eosinophils # 0.3 10*3/uL (0.0-0.87); Eosinophils % 3.8 % (0.00-10.9); Hematocrit 29.8 VOL% (35.7-47.0); Hemoglobin 9.5 GM/DL (12.0-16.0); Immature Granulocytes % 0.6 %; Immature Granulocytes Absolute 0.05 #; Lymphocytes # 1.2 10*3/uL (1.4-4.0); Lymphocytes % 15.2 % (21.3-54.2); Mean Corpuscular HGB Conc 31.9 GM/DL (32-36); Mean Corpuscular Volume 94.6 FL (87-102); Mean Platelet Volume 9.2 FL (9.6-12.0); Platelet Count 266 T/CUMM (130-400); Red Blood Count 3.15 MC/CUMM (3.8-5.5); Red Cell Distribution Width 13.3 % (9.3-17.3)
[2021-06-02 05:03] LABS: Calcium 8.6 MG/DL (8.5-10.1); Osmolality,Calculated 273.7 MOS/KG (273-304)
[2021-06-02 05:17] LABS: Alanine Aminotransferase 28 U/L (13-56); Albumin 2.6 G/DL (3.4-5.0); Alkaline Phosphatase 52 U/L (45-117); Aspartate Amino Transferase 42 U/L (0-37); Bilirubin,Indirect 0.7 MG/DL (0.0-1.0); Blood Urea Nitrogen 11 MG/DL (7-18); Calcium 8.6 MG/DL (8.5-10.1); Carbon Dioxide 27 MMOL/L (21-32); Estimated Glom Filtration Rate 95 ML/MIN; Glucose 92 MG/DL (74-106); Osmolality,Calculated 273.7 MOS/KG (273-304); Sodium 138 MMOL/L (136-145); Total Protein 5.4 G/DL (6.4-8.2)
[2021-06-02] MEDS: THYROID 60 MG PO SCH (06:07)
[2021-06-02] MEDS: ASPIRIN EC 325 MG TABLET PO SCH (08:44)
[2021-06-02] MEDS: PANTOPRAZOLE 40 MG TABLET PO SCH (08:44)
[2021-06-02] MEDS: FERROUS SULFATE 325 MG TABLET PO SCH (08:44)
[2021-06-02] MEDS: METOPROLOL TARTRATE 25 MG TABLET PO SCH (08:46)
[2021-06-02] MEDS: ASCORBIC ACID 500 MG TABLET PO SCH (08:46)
[2021-06-02] MEDS: DOCUSATE SODIUM 100 MG CAPSULE PO SCH (08:50)
[2021-06-02] MEDS: PROGESTERONE TOP SCH (08:51)
[2021-06-02] MEDS: POLYETHYLENE GLYCOL POWDER 17 GM PACK PO SCH (08:51)
[2021-06-02] MEDS: CHLORHEXIDINE 0.12% ORAL RINSE 60 ML BOTTLE SWISH/SPIT SCH (08:51)
[2021-06-02] MEDS: KETOROLAC 10 MG TABLET PO PRN (10:06)
[2021-06-02 11:35] VITALS: BP 137/64
== END 2021-06-02 14:01 | disposition home health service (06) | DRG 234 ==
LOC: N.ED 18:14 → SUATTDRO 05-24 00:09 → N.EDINP 05-24 00:09 → N.TELES 05-24 02:54 → N.CVR 05-27 10:57 → N.ICU 05-28 16:17 → N.TELES 05-30 10:54
PROVIDERS: ADMIT Internal Medicine; ATTEND Hospitalist
PROC: CLCCHCL (ICD-10-PCS; 2021-05-26 07:15)